=== PATIENT | female | born 1990 | race Caucasian/White ===

== ENCOUNTER 2017-11-03 19:56 | Emergency (ER) | payer OTHER ==
[~2017-11-03] VITALS: Ht 160 cm; Wt 59.1 kg
[2017-11-03 20:32] LABS: HEMATOCRIT 39.3 % (36.0-46.0); HEMOGLOBIN 13.5 G/DL (11.9-15.5); MCH 28.4 PG (29.0-34.0); MCHC 34.4 G/DL (30.0-36.0); MCV 82.7 FL (83-99); PLATELET COUNT 236 K/uL (156-360); RBC DIS.WIDTH-CV 12.2 % (11.8-14.6); RBC DIS.WIDTH-SD 37.1 % (39-53); RED BLOOD COUNT 4.75 M/uL (3.80-5.20); WHITE BLOOD COUNT 5.8 K/uL (4.1-10.2)
[2017-11-03 20:41] LABS: CHLORIDE 107 mEq/L (99-109); POTASSIUM 3.4 mEq/L (3.7-5.4); SODIUM 139 mEq/L (136-147)
[2017-11-03 20:43] LABS: GLUCOSE 135 mg/dL (70-99)
[2017-11-03 20:47] LABS: CREATININE 0.9 mg/dL (0.6-1.3)
[2017-11-03 20:48] LABS: UREA NITROGEN (BUN) 16 mg/dL (9-23)
[2017-11-03 20:51] LABS: TROP-I INTERPRETATION NEGATIVE; TROPONIN-I < 0.01 ng/mL (0.0-0.30)
[2017-11-03 21:02] LABS: GFR ESTIMATE (CALCULATED) > 59 mL/min/
[2017-11-04 00:34] LABS: D-DIMER ELISA < 150.00 ng/mLDDU (<230)
[2017-11-04 00:45] LABS: QUANTITATIVE HCG < 4.0 MIU/ML
[2017-11-04] MEDS ORDERED: PEPCID20 MG PO (02:29)
[2017-11-04 02:56] VITALS: BP 120/78
[2017-11-04 07:56] LABS: THYROTROPIN (TSH) 0.52 MIU/L (0.4-5.5)
== END 2017-11-04 02:59 | disposition home or self-care (01) ==
LOC: EME 19:56
DX: R00.2 Palpitations (principal); R00.0 Tachycardia, unspecified; R06.02 Shortness of breath; R42 Dizziness and giddiness; H53.8 Other visual disturbances; R20.0 Anesthesia of skin; Z86.59 Personal history of other mental and behavioral disorders
CPT/HCPCS: 71046; 80048; 84443; 84484; 84702; 85027; 85379; 93005; 99281; 99285; J7030